=== PATIENT | male | born 1970 | race Caucasian/White ===

== ENCOUNTER 2023-07-14 10:11 | Day surgery (SDC) | payer BC ==
[~2023-07-14] VITALS: Ht 177.8 cm; Wt 105.7 kg
[~2023-07-14 10:11] MED LIST: ATOR1TAB21 PO; RA T500C2 PO; THERTAB52 PO
[2023-07-14] MEDS: NS 1,000 ML IV ONE (10:39)
[2023-07-14 12:49] VITALS: BP 146/93; O2SAT 98
== END 2023-07-14 12:51 | disposition home or self-care (01) ==
LOC: M OPP 10:11
PROVIDERS: ATTEND Surgery
DX: Z12.11 Encounter for screening for malignant neoplasm of colon (principal); D12.3 Benign neoplasm of transverse colon; D12.5 Benign neoplasm of sigmoid colon; E78.00 Pure hypercholesterolemia, unspecified; Z79.899 Other long term (current) drug therapy